=== PATIENT | male | born 1935 | race Caucasian/White ===

== ENCOUNTER → 2016-12-25 13:12 | Outpatient (CLI) | payer MEDICARE, OTHER ==
[2009-09-05 06:31] VITALS: BMI 26.4
== END | disposition home or self-care (01) ==
LOC: D.MRI 13:12
DX: D33.2 Benign neoplasm of brain, unspecified (principal)

== ENCOUNTER 2017-11-26 13:49 | Inpatient (IN) | payer MEDICARE, OTHER ==
[~2017-11-26] VITALS: Ht 188 cm; Wt 97.0 kg
--- NOTE | ~2017-11-26 | DS ---
PATIENT:HARSH DE LA O :37 MEDICAL RECORD: [id number] DISCHARGE SUMMARY ADMISSION DATE: 11/26/17 DISCHARGE DATE: 12/01/17 DATE OF ADMISSION: 11/26/2017 DATE OF DISCHARGE: 12/01/2017 CONDITION ON DISCHARGE: Improved. ADMITTING DIAGNOSES: Febrile illness, leukocytosis, history of cranial meningioma. DISCHARGE DIAGNOSES: Fever, urinary tract infection, chronic diastolic heart failure, hyperlipidemia, gastroesophageal reflux, hypothyroidism, history of arteriosclerotic heart disease, hypertensive heart. HOSPITAL COURSE: The patient is an 82-year-old male who for the past couple of days had experienced shortness of breath prior to his admission. He had shortness of breath with exertion. He had fever, chills, and sweats, also became very weak. He presented to the Emergency Room, where he was found to have leukocytosis with bacteremia. I felt the patient warranted admission. PHYSICAL EXAMINATION: VITAL SIGNS: In the Emergency Room, his temperature was 100.3, his pulse 100, respirations 18, his blood pressure was 138/79. HEENT: Unremarkable. NECK: Supple. There is no adenopathy. HEART: Slightly tachycardic. LUNGS: Clear. ABDOMEN: Soft. The bowel sounds positive. RECTAL: Deferred. His chest x-ray showed interstitial disease. His white count was elevated at 14.8, hemoglobin 16.5, hematocrit was 48, his platelets were 173. His urinalysis showed 2+ blood, moderate bacteria. Troponin was negative. ProBNP is elevated at 2258. His electrolytes were normal. The patient was admitted, placed on Rocephin 1 gram every 24 hours. Echocardiogram was ordered. Echo revealed left ventricular chamber size to be within normal limits, left ventricular systolic function was normal, overall ejection fraction of 60%. Left atrium, right atrium, and right ventricle sizes were within normal limits. The valvular structures had normal structure and motion. Doppler interrogation revealed trace tricuspid regurgitation. No other valvular insufficiency or stenosis. Pulmonary systolic pressure was normal at 33 mmHg. No evidence of left ventricular thrombus. The patient's urine cultures and blood cultures remained normal. Over the coming days, the patient's condition slowly began to improve. On the , his white count was 8.4, his hemoglobin 14.4, hematocrit 43.3, and his platelets were 179. He had a sodium of 141, potassium 3.7, chloride was 104, CO2 was 29.9, his BUN was 8, and creatinine was 1.0. The patient was afebrile and his vital signs were stable. O2 sat was 92% on room air. His condition was discussed with his as well as the daughter, who felt the patient should receive rehab. On the 6th, the patient was afebrile, his vital signs were stable, he was discharged to a local residential. DISCHARGE MEDICATIONS: Included Cozaar 100 mg 1 p.o. every day, aspirin 81 mg DISCHARGE SUMMARY REPORT [id number] HARSH DE LA O daily, omeprazole 20 mg 1 p.o. every day , Neurontin 600 mg p.o. t.i.d., Ativan 2 mg p.o. b.i.d. p.r.n. anxiety, Aricept 10 mg 1 p.o. every day, Cymbalta 90 mg daily, vitamin B12 of 1000 mcg p.o. every day, vitamin D3 2000 international units once daily, levothyroxine 75 mcg once a day, simvastatin 20 mg 1 p.o. at bedtime, Thorazine 25 mg p.o. at bedtime, lorazepam ____ p.o. every day at noon and 1 mg p.o. at bedtime, Librax 1 p.o. at bedtime, and Neurontin 900 mg p.o. at bedtime. DISCHARGE INSTRUCTIONS: The patient was discharged to [facility]. Continue all current medications. Regular diet. He would follow up with me after discharge from rehab. TRANSINT:[id number] Voice Confirmation ID: [id number] DOCUMENT ID: [id number] PAIGE PAZ MD at 0742 CC: [id number] DICTATION DATE: 12/26/17 1202 DIRECTOR SPECIAL EDUCATION: 12/27/17 0126 DIS IN 12/01/17 [id number] [place] [address]
--- NOTE | ~2017-11-26 | EC ---
PATIENT:HARSH DE LA O DATE OF SERVICE: 11/26/17 SEX: M MEDICAL RECORD: [id number] DATE OF : 37 LOCATION:D.M2 D.210 AGE OF PATIENT: 82 ADMISSION DATE: 11/26/17 REFERRING PHYSICIAN: INTERPRETING PHYSICIAN: KEVYN FARNSWORTH MD ECHOCARDIOGRAM REPORT ECHO CHARGES 4 ECHO COMPLETE Date: 11/28 CLINICAL DIAGNOSIS: JARRETT ECHOCARDIOGRAPHIC MEASUREMENTS (adult normal given) AC root (d.<3.7cm) 3.1 cm LV Septum d (<1.2 cm> 1.2 cm Valve Excursion 1.8 cm LV Septum (systole) 1.9 cm Left Atria (s.<4.0cm> 2.9 cm LVPW d(<1.2cm) 1.1 cm RV (d.<2.3cm) 2.4 cm LVPW (sytole) 1.8 cm LV diastole(<5.6CM) 5.5 cm MV E-F(>70mm/sec) cm LV systole 3.7 cm LVOT Diameter 1.8 cm MV exc.(>10mm) cm Est.ejection fraction (50-75%) % DOPPLER: LVIT cm/sec A 91.0 cm/sec E 60.0 cm/sec LA cm/sec RVSP 33.0 mmHg LVOT 111 cm/sec AOP1/2T m/s Asc. Ao 118 cm/sec RVOT 87.0 cm/sec RA cm/sec PA 114 cm/sec AV Gradient Peak 5.6 mmHg AV Mean 3.3 mmHg AV Area 2.2 cm MV Gradient Peak 3.3 mmHg MV Mean 1.4 mmHg MV Area cm COMMENTS: Customer Operations Specialist: [employer] Lining Stuffer: 1 Dr. Farnsworth TAPE# PACS Pericardial Effusion N DATE OF SERVICE: 11/28/2017 PROCEDURE: Echocardiogram. FINDINGS: 1. Left ventricular chamber size is within normal limits. Left ventricular systolic function is normal. Overall ejection fraction estimated at 60%. 2. Left atrium, right atrium, and right ventricle chamber sizes are within normal limits. 3. Valvular structures have normal structure and motion. ECHOCARDIOGRAM REPORT [id number] HARSH DE LA O 4. Doppler interrogation reveals trace tricuspid regurgitation, no other valvular insufficiency or stenosis and pulmonary systolic pressure is normal at 33 mmHg. 5. No evidence of pericardial effusion or left ventricular thrombus. TRANSINT:[id number] Voice Confirmation ID: [id number] DOCUMENT ID: [id number] KEVYN FARNSWORTH MD at 1403 CC: [id number] DICTATION DATE: 11/29/17 1010 ANSWERER: 11/29/17 1209 DIS IN 12/01/17 [facility] [address] [id number]
--- NOTE | ~2017-11-26 | HP ---
PATIENT: HARSH DE LA O MEDICAL RECORD: [id number] ACCOUNT: [id number] LOCATION:[address] : 37 ADMISSION DATE: 11/26/17 HISTORY AND PHYSICAL EXAMINATION DATE OF ADMISSION: 11/26/2017. CHIEF COMPLAINT: Generalized weakness. HISTORY OF PRESENT ILLNESS: The patient is an 82-year-old gentleman who for the past couple of days has experienced increasing shortness of breath with exertion. He has also had fever, chills, and sweats. The patient has become generally weak. He presents to the Emergency Room where he was found to have leukocytosis as well as bacteremia, was felt the patient should be admitted. PAST MEDICAL HISTORY: Significant that he has had a history of extreme anxiety, he has also had insomnia, hypothyroidism, hyperlipidemia, gastroesophageal reflux. He has had a radical prostatectomy in 2002, numerous cervical as well as lumbar surgeries, he had a meningioma removed in the cranium several years ago by Dr. Roth in 1983. The patient suffers from depression as well. He has had a cholecystectomy. He has had a history of gastritis. FAMILY HISTORY: Father of heart disease. One sister of heart disease. Father developed congestive heart failure. Mother had breast cancer. ALLERGIES: CODEINE, PROZAC. MEDICATIONS: Aricept 10 mg p.o. every day; aspirin 81 mg once a day; Thorazine 25 mg 1-2 p.o. bedtime; Coreg 6.25 mg p.o. b.i.d.; Cymbalta 90 mg once a day; Neurontin 300 mg p.o. at bedtime and 600 mg q.i.d.; levothyroxine 75 mcg daily; lorazepam 1 mg 2 tablets q.a.m., also at 5:00 p.m., 1-1/2 tablets at noon and at bedtime; losartan 100 mg once a day; Protonix 40 mg daily; simvastatin 20 mg once a day; vitamin D3 2000 international units daily. SOCIAL HISTORY: The patient is a former smoker, 1 pack per day, quit many years ago. He was born in [place]. He is the father of 2, resides in [place]. Denies any alcohol use or abuse. REVIEW OF SYSTEMS: GENERAL: He denies any headaches, seizure, or syncope. Denies change in visual or auditory acuity. PULMONARY: He denies any shortness of breath, cough, congestion, history of TB, asthma, or bronchitis. CARDIOVASCULAR: No chest pain, palpitation, PND, or orthopnea. GASTROINTESTINAL: No chronic nausea, vomiting, melena, or hematochezia. GENITOURINARY: No urgency, frequency, or dysuria. PHYSICAL EXAMINATION: VITAL SIGNS: In the Emergency Room, the patient's temperature was 100.3, his pulse was 100, respirations 18, temperature is 100.3, his blood pressure 138/79. HEENT: Head is normocephalic. No lesions. Ears: TMs clear. Eyes: Pupils equal, round, and reactive to light. His extraocular movements are intact. His nasal cavity, oral cavity, oropharynx clear. NECK: Supple. There is no adenopathy. HEART: Has a regular rate and rhythm without any murmurs, gallops, or rubs. HISTORY AND PHYSICAL [id number] HARSH DE LA O LUNGS: Clear. ABDOMEN: Soft, bowel sounds are positive. No organomegaly. GENITAL AND RECTAL: Deferred. DIAGNOSTIC DATA: The patient had a chest x-ray. Chest x-ray revealed mild interstitial disease noted. LABORATORY DATA: White count was 14.8, hemoglobin 16.5, hematocrit 48, platelets were 178. Urinalysis showed 2+ blood. He had 0-5 rbc's, occasional wbc's, moderate bacteria. Troponin was negative. He had a proBNP at 2258. Sodium 142, potassium 3.8, chloride 106, CO2 was 26, BUN is 10, creatinine is 1.3. Liver functions normal. ASSESSMENT: Febrile illness, leukocytosis, history of cranial meningioma obtained as well as urine cultures, placed on Rocephin 1 gram q.24 hours. We will get an echocardiogram, IV hydration. TRANSINT:[id number] Voice Confirmation ID: [id number] DOCUMENT ID: [id number] PAIGE PAZ MD at 1104 CC: [id number] DICTATION DATE: 11/27/17 1006 MOLECULAR PATHOLOGIST: 11/27/17 1103 [place] [address]
[2017-11-26 14:15] LABS: BASOPHILS 0.2 % (0-2); EOSINOPHILS 0 % (0-7); HEMOGLOBIN 16.5 g/dL (13.5-17.5); IMMATURE GRANULOCYTES 0.3 % (0-5); LYMPHOCYTES 6.6 % (15-50); MCH 31.4 pg (26.0-34.0); MCHC 34.4 g/dL (31.0-37.0); MCV 91.4 fL (80.0-100.0); MEAN PLATELET VOLUME 10.4 fL (7.4-10.4); MONOCYTES 7.9 % (2-11); PLATELET COUNT 178 10x3/uL (130-400); RBC 5.25 10x6/uL (4.20-6.10); RDW 13.6 % (11.5-14.5); WBC 14.8 10x3/uL (4.8-10.8)
[2017-11-26 14:36] LABS: ALBUMIN 3.2 g/dL (3.4-5.0); ANION GAP 13.6 mmol/L (8-16); BILIRUBIN - TOTAL 0.78 mg/dL (0.2-1.3); CARBON DIOXIDE 26.2 mmol/L (21.0-32.0); CREATININE - SERUM 1.3 mg/dL (0.6-1.3); POTASSIUM - SERUM 3.8 mmol/L (3.5-5.1); PROTEIN - SERUM 7.1 g/dL (6.4-8.2)
[2017-11-26 15:50] LABS: APPEARANCE CLEAR (CLEAR); COLOR YELLOW (YELLOW); GLUCOSE NEGATIVE (NEGATIVE); KETONE NEGATIVE (NEGATIVE); NITRITE NEGATIVE (NEGATIVE); PROTEIN 1+ mg/dL (NEGATIVE); UROBILINOGEN NORMAL (NORMAL)
[2017-11-26 15:51] LABS: BILIRUBIN 1+ (NEGATIVE)
[2017-11-26 15:52] LABS: RED CELLS - URINE 0-5 /hpf (0-5); WHITE CELLS - URINE OCC /hpf (0-5)
[2017-11-26 15:53] LABS: AMORPHOUS SEDIMENT <1+ /lpf (NONE SEEN); BACTERIA MODERATE /hpf (NONE SEEN)
[2017-11-26 16:02] LABS: INR 1.17 (0.85-1.17); PROTIME 14.4 SECONDS (11.6-15.0)
[2017-11-26 16:04] LABS: CREATINE KINASE 363 UL (21-232); LIPASE 140 U/L (73-393); MAGNESIUM - SERUM 2.1 mg/dL (1.8-2.4); PRO BNP 2258 pg/mL (0-450); TROPONIN-I 0.045 ng/mL (0.000-0.060)
[2017-11-26 16:09] LABS: CKMB 1.7 U/L (0.0-3.6)
[2017-11-26] MEDS ORDERED: BAYER CHEWABLE81 MG PO (19:29)
[2017-11-26] MEDS ORDERED: COZAAR100 MG PO (19:29)
[2017-11-26] MEDS ORDERED: OMEPRAZOLE20 M1 PO (19:30)
[2017-11-26] MEDS ORDERED: NEURONTIN600 MG PO (19:30)
[2017-11-26] MEDS ORDERED: ARICEPT5 MG PO (19:31)
[2017-11-26] MEDS ORDERED: ATIVAN2 MG PO (19:31)
[2017-11-26] MEDS ORDERED: VITAMIN B-121000 MCG PO (19:32)
[2017-11-26] MEDS ORDERED: CYMBALTA30 MG PO (19:32)
[2017-11-26] MEDS ORDERED: ZOCOR20 MG PO (19:33)
[2017-11-26] MEDS ORDERED: TIROSINT75 MCG PO (19:33)
[2017-11-26] MEDS ORDERED: VITAMIN D2000 UNIT PO (19:33)
[2017-11-26] MEDS ORDERED: THORAZINE25 MG PO (19:34)
[2017-11-26 20:02] VITALS: BP 167/76; Ht 188 cm; Wt 97.0 kg
[2017-11-26 20:33] VITALS: BP 167/76
[2017-11-27 01:35] VITALS: BP 145/64
[2017-11-27 05:02] LABS: BASOPHILS 0.4 % (0-2); EOSINOPHILS 0 % (0-7); HEMATOCRIT 47.4 % (42.0-54.0); HEMOGLOBIN 15.8 g/dL (13.5-17.5); IMMATURE GRANULOCYTES 0.3 % (0-5); MCHC 33.3 g/dL (31.0-37.0); MCV 93.1 fL (80.0-100.0); MEAN PLATELET VOLUME 10.6 fL (7.4-10.4); MONOCYTES 10.6 % (2-11); NEUTROPHILS 76.7 % (40-80); PLATELET COUNT 166 10x3/uL (130-400); RBC 5.09 10x6/uL (4.20-6.10); RDW 13.9 % (11.5-14.5); WBC 11.8 10x3/uL (4.8-10.8)
[2017-11-27 05:50] VITALS: BP 143/81
[2017-11-27 06:20] LABS: ANION GAP 14.2 mmol/L (8-16); CALCIUM 8.9 mg/dL (8.5-10.1); CARBON DIOXIDE 28.3 mmol/L (21.0-32.0); CREATININE - SERUM 1.5 mg/dL (0.6-1.3); MAGNESIUM - SERUM 2.1 mg/dL (1.8-2.4); POTASSIUM - SERUM 3.5 mmol/L (3.5-5.1)
[2017-11-27 08:25] VITALS: BP 160/83
[2017-11-27 11:52] VITALS: BP 165/71
[2017-11-27 15:53] VITALS: BP 120/47
[2017-11-27 20:34] VITALS: BP 146/59
[2017-11-28 01:31] VITALS: BP 100/53
[2017-11-28 05:43] VITALS: BP 131/59
[2017-11-28 05:50] LABS: BASOPHILS 0.3 % (0-2); EOSINOPHILS 2.7 % (0-7); IMMATURE GRANULOCYTES 0.1 % (0-5); LYMPHOCYTES 21.1 % (15-50); MCH 30.2 pg (26.0-34.0); MCV 94.4 fL (80.0-100.0); MEAN PLATELET VOLUME 10.1 fL (7.4-10.4); MONOCYTES 16.7 % (2-11); NEUTROPHILS 59.1 % (40-80); RDW 14.1 % (11.5-14.5)
[2017-11-28 05:53] LABS: HEMATOCRIT 33.8 % (42.0-54.0); HEMOGLOBIN 10.8 g/dL (13.5-17.5); PLATELET COUNT 107 10x3/uL (130-400); RBC 3.58 10x6/uL (4.20-6.10); WBC 6.7 10x3/uL (4.8-10.8)
[2017-11-28 06:12] LABS: CALC OSMOLALITY 291 mosm/kg (275-300); CARBON DIOXIDE 24.3 mmol/L (21.0-32.0); CHLORIDE - SERUM 111 mmol/L (98-107); GLUCOSE 109 mg/dL (74-106); PRO BNP 578 pg/mL (0-450); SODIUM 146 mmol/L (136-145); UREA NITROGEN 13 mg/dL (7-18)
[2017-11-28 06:47] LABS: eGFR NON AFRICAN AMERICAN 76 mL/min (90-120)
[2017-11-28 06:49] LABS: CALCIUM 6.7 mg/dL (8.5-10.1); POTASSIUM - SERUM 2.8 mmol/L (3.5-5.1)
[2017-11-28 10:02] VITALS: BP 149/76
[2017-11-28 13:18] VITALS: BP 153/71
[2017-11-28 16:17] VITALS: BP 147/84
[2017-11-28 22:00] VITALS: BP 154/72
[2017-11-29 02:06] VITALS: BP 154/72
[2017-11-29 04:30] LABS: BASOPHILS 0.4 % (0-2); EOSINOPHILS 6.1 % (0-7); HEMATOCRIT 41.8 % (42.0-54.0); HEMOGLOBIN 13.8 g/dL (13.5-17.5); IMMATURE GRANULOCYTES 0.1 % (0-5); LYMPHOCYTES 22.9 % (15-50); MCH 30.8 pg (26.0-34.0); MCV 93.3 fL (80.0-100.0); MEAN PLATELET VOLUME 10.6 fL (7.4-10.4); MONOCYTES 14.3 % (2-11); NEUTROPHILS 56.2 % (40-80); PLATELET COUNT 156 10x3/uL (130-400); RBC 4.48 10x6/uL (4.20-6.10); RDW 13.7 % (11.5-14.5); WBC 7.6 10x3/uL (4.8-10.8)
[2017-11-29 04:48] LABS: CARBON DIOXIDE 28.5 mmol/L (21.0-32.0); CHLORIDE - SERUM 105 mmol/L (98-107); GLUCOSE 109 mg/dL (74-106); SODIUM 141 mmol/L (136-145); eGFR NON AFRICAN AMERICAN 76 mL/min (90-120)
[2017-11-29 04:52] LABS: CALC OSMOLALITY 280 mosm/kg (275-300); POTASSIUM - SERUM 3.8 mmol/L (3.5-5.1); UREA NITROGEN 9 mg/dL (7-18)
[2017-11-29 06:01] VITALS: BP 140/66
[2017-11-29 08:53] VITALS: BP 138/83
[2017-11-29 11:45] VITALS: BP 169/86
[2017-11-29 20:00] VITALS: BP 185/87
[2017-11-30] VITALS: BP 158/81
[2017-11-30 04:00] VITALS: BP 149/83
[2017-11-30 04:06] LABS: BASOPHILS 0.5 % (0-2); HEMATOCRIT 43.3 % (42.0-54.0); HEMOGLOBIN 14.4 g/dL (13.5-17.5); IMMATURE GRANULOCYTES 0.2 % (0-5); LYMPHOCYTES 20.2 % (15-50); MCHC 33.3 g/dL (31.0-37.0); MCV 93.3 fL (80.0-100.0); MEAN PLATELET VOLUME 10.1 fL (7.4-10.4); MONOCYTES 11.7 % (2-11); NEUTROPHILS 61.4 % (40-80); PLATELET COUNT 179 10x3/uL (130-400); RBC 4.64 10x6/uL (4.20-6.10); RDW 13.6 % (11.5-14.5); WBC 8.4 10x3/uL (4.8-10.8)
[2017-11-30 04:24] LABS: CALC OSMOLALITY 279 mosm/kg (275-300); CALCIUM 8.5 mg/dL (8.5-10.1); CARBON DIOXIDE 29.9 mmol/L (21.0-32.0); CHLORIDE - SERUM 104 mmol/L (98-107); GLUCOSE 111 mg/dL (74-106); POTASSIUM - SERUM 3.7 mmol/L (3.5-5.1); SODIUM 141 mmol/L (136-145); UREA NITROGEN 8 mg/dL (7-18); eGFR NON AFRICAN AMERICAN 76 mL/min (90-120)
[2017-11-30 07:59] VITALS: BP 152/89
[2017-11-30 11:48] VITALS: BP 185/90
[2017-11-30 15:46] VITALS: BP 185/81
[2017-11-30 20:28] VITALS: BP 160/79
[2017-12-01 01:30] VITALS: BP 162/75
[2017-12-01 04:00] VITALS: BP 155/84
[2017-12-01 07:44] VITALS: BP 128/91
[2017-12-01] MEDS ORDERED: CEFUROXIME250 MG PO (08:38)
[2017-12-01] MEDS ORDERED: ATIVAN1 MG PO ×2 (10:28→10:29)
[2017-12-01] MEDS ORDERED: LIBRAX CAPSULE1 CAP PO (10:34)
[2017-12-01] MEDS ORDERED: NEURONTIN 300300 MG PO (10:36)
== END 2017-12-01 11:52 | DRG 690 ==
LOC: D.ER 13:49 → D.M2 18:11
PROVIDERS: Emergency Medicine; Family Medicine; Nurse Practitioner Family
DX: N39.0 Urinary tract infection, site not specified (principal); I50.32 Chronic diastolic (congestive) heart failure; G47.00 Insomnia, unspecified; E78.5 Hyperlipidemia, unspecified; K21.9 Gastro-esophageal reflux disease without esophagitis; E03.9 Hypothyroidism, unspecified; I25.10 Atherosclerotic heart disease of native coronary artery without angina pectoris; I11.0 Hypertensive heart disease with heart failure

== ENCOUNTER → 2018-03-07 13:38 | Outpatient (CLI) | payer MEDICARE, OTHER ==
[~2018-03-07 13:38] MED LIST: ARICEPT5 MG PO; ATIVAN1 MG PO; ATIVAN2 MG PO; BAYER CHEWABLE81 MG PO; CEFUROXIME250 MG PO; COZAAR100 MG PO; CYMBALTA30 MG PO; LIBRAX CAPSULE1 CAP PO; NEURONTIN 300300 MG PO; NEURONTIN600 MG PO; OMEPRAZOLE20 M1 PO; THORAZINE25 MG PO; TIROSINT75 MCG PO; VITAMIN B-121000 MCG PO; VITAMIN D2000 UNIT PO; ZOCOR20 MG PO
== END | disposition home or self-care (01) ==
LOC: D.MRI 13:38
DX: R26.89 Other abnormalities of gait and mobility (principal)